=== PATIENT | male | born 1955 | race Caucasian/White ===

== ENCOUNTER → 2024-06-11 08:56 | Outpatient (REF) | payer MEDICARE, OTHER, SELFPAY | LOC: RAD 08:56 | PROVIDERS: ATTENDING PHYSICIAN Family Medicine; REFERRING PHYSICIAN Internal Medicine Interventional Cardiology | DX: R06.02 Shortness of breath (principal); Z87.891 Personal history of nicotine dependence; J44.9 Chronic obstructive pulmonary disease, unspecified; M54.6 Pain in thoracic spine | CPT/HCPCS: 71046; 72072 ==

== ENCOUNTER → 2024-06-12 06:46 | Outpatient (REF) | payer MEDICARE, OTHER, SELFPAY | LOC: RAD 06:46 | PROVIDERS: ATTENDING PHYSICIAN Physician Assistant Medical; FAMILY PHYSICIAN Family Medicine | DX: I71.43 Infrarenal abdominal aortic aneurysm, without rupture (principal); R09.89 Other specified symptoms and signs involving the circulatory and respiratory systems | CPT/HCPCS: 76770; 93880 ==

== ENCOUNTER → 2024-06-13 08:01 | Outpatient (REF) | payer MEDICARE, OTHER, SELFPAY | LOC: HWRAD 08:01 | PROVIDERS: ATTENDING PHYSICIAN Family Medicine | DX: Z87.891 Personal history of nicotine dependence (principal) | CPT/HCPCS: 71271 ==

== ENCOUNTER → 2024-06-13 09:36 | Outpatient (REF) | payer MEDICARE, OTHER, SELFPAY | LOC: RCS 09:36 | PROVIDERS: ATTENDING PHYSICIAN Physician Assistant Medical; FAMILY PHYSICIAN Family Medicine | DX: R06.9 Unspecified abnormalities of breathing (principal); R07.9 Chest pain, unspecified; R09.89 Other specified symptoms and signs involving the circulatory and respiratory systems; I71.43 Infrarenal abdominal aortic aneurysm, without rupture | CPT/HCPCS: 71271; 93306 ==

== ENCOUNTER 2025-02-10 06:22 | Day surgery (SDC) | payer MEDICARE, OTHER, SELFPAY | END 2025-02-10 11:04 | disposition home or self-care (01) | LOC: GI 06:22 | PROVIDERS: ATTENDING PHYSICIAN Student in an Organized Health Care Education/Training Program; FAMILY PHYSICIAN Family Medicine | DX: K22.70 Barrett's esophagus without dysplasia (principal); K31.89 Other diseases of stomach and duodenum | CPT/HCPCS: 43239; 88305; 88342 ==

== ENCOUNTER → 2025-04-23 07:37 | Outpatient (REF) | payer MEDICARE, OTHER, SELFPAY | LOC: DHSLP 07:37 | PROVIDERS: ATTENDING PHYSICIAN Family Medicine; FAMILY PHYSICIAN Internal Medicine | DX: G47.33 Obstructive sleep apnea (adult) (pediatric) (principal); R09.02 Hypoxemia | CPT/HCPCS: 95800 ==